=== PATIENT | male | born 1965 | race Caucasian/White ===

== ENCOUNTER 2017-03-13 14:30 | Emergency (ER) | payer OTHER ==
--- NOTE | 2017-03-13 14:43 | ED ---
General Adult HPI - General Chief complaint: Extremity Injury, Lower Stated complaint: Foot Pain Time Seen by Provider: 03/13/17 14:36 Source: patient, RN notes reviewed Mode of arrival: ambulatory Limitations: no limitations - History of Present Illness Initial comments: patient is a 31-year-old male who presents emergency room today with chief complaint of pain to the left foot. He does admit that he broke his foot was 6 years old. He states he's had a bump over the first metatarsal midshaft. He states that he worsens shoes for a few days. Be too tight on his foot. He states that since that time of the last week she's been experiencing pain to the area. He states is worse with certain movements. Patient denies any other complaints or injuries. Patient denies any recent fever, chills, shortness of breath, chest pain, back pain, abdominal pain, nausea or vomiting, numbness or tingling, headaches or visual changes, or any other complaints. - Related Data Home Medications Medication Instructions Recorded Confirmed Hydrocodone/Acetaminophen [[place] 1 tab PO QID PRN 03/13/17 03/13/17 10-325] Previous Rx's Medication Instructions Recorded Ibuprofen [Motrin] 600 mg PO Q6HR PRN #30 day 03/13/17 Allergies Allergy/AdvReac Type Severity Reaction Status Date / Time No Known Allergies Allergy Verified 03/13/17 14:36 Review of Systems ROS Statement: Those systems with pertinent positive or pertinent negative responses have been documented in the HPI. ROS Other: All systems not noted in ROS Statement are negative. Past Medical History Past Medical History: Cancer, Osteoarthritis (OA) Additional Past Medical History / Comment(s): back pain, kidney stones, colon CA History of Any Multi-Drug Resistant Organisms: None Reported Past Surgical History: Bowel Resection Past Psychological History: No Psychological Hx Reported Smoking Status: Never smoker Past Alcohol Use History: None Reported Past Drug Use History: None Reported General Exam - General Exam Comments Initial Comments: General: The patient is awake and alert, in no distress, and does not appear acutely ill. Neck: The neck is supple, there is no tenderness or JVD. Cardiovascular: There is a regular rate and rhythm. No murmur, rub or gallop is appreciated. Respiratory: Lungs are clear to auscultation, respirations are non-labored, breath sounds are equal. No wheezes, stridor, rales, or rhonchi. Musculoskeletal: she does have area of redness midshaft of the first metatarsal. Locally tender in this area. Mild tenderness just distal to it. No other bony tenderness on exam. Sensations intact pulses equal bilaterally 2+ . Shows full range of motion. Strength is 5/5. Neurological: A&O x 3. CN II-XII intact, There are no obvious motor or sensory deficits. Coordination appears grossly intact. Speech is normal. Skin: Skin is warm and dry and no rashes or lesions are noted. Psychiatric: Normal mood and affect. Limitations: no limitations Course Vital Signs 03/13/17 14:31 Temperature 98.2 F Pulse Rate 70 Respiratory 18 Rate Blood Pressure 155/91 O2 Sat by Pulse 99 Oximetry Medical Decision Making - Medical Decision Making x-ray reviewed and shows no acute fracture dislocation. Results were discussed with the patient. Patient is advised to follow-up with orthopedics also cooker soda. Advised to continue ice elevate the affected area and using ice. Advised to use anti-inflammatories for pain. Advised return for any other concerns. Disposition Clinical Impression: Foot pain, left Disposition: HOME SELF-CARE Condition: Good Instructions: Swollen Joint (ED) Additional Instructions: Please use medication as discussed. Please follow-up with cooker soda/ orthopedic in the next 2-5 days of symptoms have not improved. Please return to emergency room if the symptoms increase or worsen or for any other concerns. Prescriptions: Ibuprofen [Motrin] 600 mg PO Q6HR PRN #30 day PRN Reason: Pain Referrals: None,Stated [REFERRING] - 1-2 days Jonh Pop MD [Medical Doctor] - 1-2 days Dino Ayers DPM [STAFF PHYSICIAN] - 1-2 days Time of Disposition: 15:32
--- NOTE | 2017-03-13 15:46 | XR ---
EXAMINATION TYPE: XR foot complete LT DATE OF EXAM: 03/13/2017 COMPARISON: NONE HISTORY: Pain injury lump on foot first and second metatarsal region TECHNIQUE: Three-view left foot FINDINGS: No acute fractures are evident. Joint spaces are preserved. Soft tissues are normal. IMPRESSION: 1. Normal three-view left foot
[2017-03-13 16:42] VITALS: BP 155/91; PULSE 70; RESP 18; TEMP 98.2
== END 2017-03-13 15:47 | disposition home or self-care (01) ==
LOC: EC 14:30
DX: M79.672 Pain in left foot (principal); Z85.038 Personal history of other malignant neoplasm of large intestine
CPT/HCPCS: 99283

== ENCOUNTER → 2020-06-09 | Outpatient (CLI) | payer OTHER | END | disposition home or self-care (01) | LOC: LABPAT 09:37 | PROVIDERS: ATTEND Surgery | DX: Z20.822 Contact with and (suspected) exposure to COVID-19 (principal) | CPT/HCPCS: U0003; C9803; U0005 ==

== ENCOUNTER 2020-06-16 06:42 | Day surgery (SDC) | payer OTHER ==
[2020-06-13 17:47] VITALS: BMI 36.0
[~2020-06-16 06:42] MED LIST: LACTATED RINGERS 1,000 ML IV SCH
[2020-06-16 07:23] VITALS: RESP 16; TEMP 97.4
[2020-06-16] MEDS ORDERED: PROPOFOL 10 MG/ML 20 ML VIAL IV ONE (07:56)
[2020-06-16] MEDS ORDERED: fentaNYL (PF) 50 MCG/ML 2 ML AMP ONE (07:56)
[2020-06-16] MEDS ORDERED: MIDAZOLAM 2 MG/2 ML VIAL ONE (07:56)
--- NOTE | 2020-06-16 08:14 | P.PCN ---
Date of Procedure: 06/16/20 Preoperative Diagnosis: History of colon cancer Screening for colon cancer Postoperative Diagnosis: History of colon cancer Patent anastomosis Screening for colon cancer Procedure(s) Performed: Colonoscopy Anesthesia: MAC Surgeon: Basilio Barnhart Pathology: none sent Condition: stable Disposition: same day Indications for Procedure: 55-year-old male with personal history of colon cancer and right hemicolectomy presents today for screening colonoscopy. He denies any recent blood in his stool. Denies any significant changes in bowel function. No additional complaints at this time. Risks, benefits and alternatives were provided to the patient. He did provide consent prior to attending the endoscopy suite. Operative Findings: Patent anastomosis No obvious polyps Description of Procedure: The patient was brought to the endoscopy suite and placed in left lateral decubitus position and adequate sedation was achieved using conscious sedation. A digital rectal exam was performed and internal hemorrhoids were palpated. An endoscope was then placed in the rectum and advanced to the anastomosis of the patient's previous right hemicolectomy. The prep was good. The colonoscope was then slowly withdrawn, examining for any mucosal abnormalities. The remaining transverse, descending and sigmoid colon were visualized adequately. The previous anastomosis was noted to be patent without any ulceration. There were no large neoplastic lesions noted throughout the colon. There were no polyps noted throughout the colon. There was no evidence of diverticulosis. Retroflexion was performed in the rectum and internal hemorrhoids were visible. Excess air was removed, the colonoscope was withdrawn and the procedure terminated. The patient was then transferred to the recovery unit in stable condition. Repeat colonoscopy should be performed in 3 years.
[2020-06-16 08:31] VITALS: BP 151/97; PULSE 76
== END 2020-06-16 09:03 | disposition home or self-care (01) ==
LOC: ORWHC2ENDO 06:42
PROVIDERS: ATTEND Surgery
DX: Z12.11 Encounter for screening for malignant neoplasm of colon (principal); K64.8 Other hemorrhoids; Z87.442 Personal history of urinary calculi; Z79.891 Long term (current) use of opiate analgesic; Z90.49 Acquired absence of other specified parts of digestive tract; Z85.038 Personal history of other malignant neoplasm of large intestine
CPT/HCPCS: J2250; J3010; J2704; G0105

== ENCOUNTER 2020-06-19 11:53 | Emergency (ER) | payer OTHER ==
[2020-06-19] MEDS ORDERED: KETOROLAC 15 MG/ML 1 ML VIAL IVP STA (12:41)
[2020-06-19] MEDS ORDERED: SODIUM CHLORIDE 0.9% 1,000 ML IV STA (12:41)
--- NOTE | 2020-06-19 12:50 | ED ---
General Adult HPI - General Chief complaint: Abdominal Pain Stated complaint: revisit kidney stone pain and male gu pain Time Seen by Provider: 06/19/20 12:32 Source: patient, RN notes reviewed Mode of arrival: ambulatory Limitations: no limitations - History of Present Illness Initial comments: 55-year-old white male patient, alert and oriented 4, presents to the emergency room with right flank and right testicle pain. Patient states he has a history of kidney stones and his urologist has told him that they're small and will pass on their own. Patient states the pain started in his right flank last week however yesterday the pain became worse and he took his last [place] from previous illness with no relief. Patient underwent colonoscopy on 06/16/2020 and was given a clean bill of health, no further evidence of Colon cancer. Patient did have a resection done in the past. Patient states also has kidney stones in the left which was diagnosed at [facility]. Patient was also told to follow-up with urology on [facility], does not remember the doctor's name. Patient denies fevers, nausea vomiting or diarrhea. Does admit to decreased oral intake since having to drink so much fluid for his colonoscopy, states doesn't want to drink any more water. Patient denies drinking or smoking on a daily basis. Does not take any other pain medications. -: week(s) (1) Location: right (flank) Radiation: other (right testicle) Severity scale (1-10): 10 Improves with: none Worsens with: none Associated Symptoms: denies other symptoms - Related Data Home Medications Medication Instructions Recorded Confirmed Hydrocodone/Acetaminophen [[place] 1 tab PO QID PRN 03/13/17 06/19/20 10-325] Allergies Allergy/AdvReac Type Severity Reaction Status Date / Time No Known Allergies Allergy Verified 06/19/20 14:11 Review of Systems ROS Statement: Those systems with pertinent positive or pertinent negative responses have been documented in the HPI. ROS Other: All systems not noted in ROS Statement are negative. Past Medical History Past Medical History: Cancer, Osteoarthritis (OA) Additional Past Medical History / Comment(s): back pain, kidney stones, colon CA History of Any Multi-Drug Resistant Organisms: None Reported Past Surgical History: Bowel Resection Past Psychological History: No Psychological Hx Reported Smoking Status: Never smoker Past Alcohol Use History: None Reported Past Drug Use History: None Reported General Exam Limitations: no limitations General appearance: alert, in no apparent distress Head exam: Present: atraumatic, normocephalic, normal inspection Eye exam: Present: normal appearance, PERRL, EOMI. Absent: scleral icterus, conjunctival injection, periorbital swelling ENT exam: Present: normal exam, mucous membranes moist Respiratory exam: Present: normal lung sounds bilaterally. Absent: respiratory distress, wheezes, rales, rhonchi, stridor Cardiovascular Exam: Present: regular rate, normal rhythm, normal heart sounds. Absent: systolic murmur, diastolic murmur, rubs, gallop, clicks GI/Abdominal exam: Present: soft (midline scar from colon surgery in past), n ormal bowel sounds. Absent: distended, tenderness, guarding, rebound, rigid Back exam: Present: normal inspection, full ROM. Absent: CVA tenderness (R), CVA tenderness (L) Neurological exam: Present: alert, oriented X3, CN II-XII intact Psychiatric exam: Present: normal affect, normal mood Skin exam: Present: warm, dry, intact, normal color. Absent: rash, diaphoretic Course Vital Signs 06/19/20 06/19/20 12:23 14:24 Temperature 98.0 F Pulse Rate 96 89 Respiratory 17 18 Rate Blood Pressure 150/121 150/84 O2 Sat by Pulse 97 97 Oximetry Medical Decision Making - Medical Decision Making Patient with a history of bilateral renal calculi, right with 3-4 symptoms to 9 mm, left renal calculus 5 mm follow-up for, chest x-ray was clear to auscultation, WBC count 15.5 urine shows WBCs of 6 with bacteria and trace leukocytes which was treated with Rocephin [address] shows mild hydro-UPJ on right with 9mm calculi. Patient has an appointment with his primary care doctor today virtually. Case discussed with Dr. Lowery, will send patient home to follow up with his primary care doctor and urology. - Lab Data Result diagrams: 06/19/20 12:51 06/19/20 12:51 Lab Results 06/19/20 06/19/20 06/19/20 Range/Units 12:51 12:51 13:36 WBC 15.5 H (3.8-10.6) k/uL RBC 5.27 (4.30-5.90) m/uL Hgb 16.9 (13.0-17.5) gm/dL Hct 47.3 (39.0-53.0) % MCV 89.8 (80.0-100.0) fL MCH 32.1 (25.0-35.0) pg MCHC 35.8 (31.0-37.0) g/dL RDW 12.1 (11.5-15.5) % Plt Count 351 (150-450) k/uL MPV 7.2 Neutrophils % 84 % Lymphocytes % 8 % Monocytes % 6 % Eosinophils % 2 % Basophils % 1 % Neutrophils # 13.0 H (1.3-7.7) k/uL Lymphocytes # 1.2 (1.0-4.8) k/uL Monocytes # 0.9 (0-1.0) k/uL Eosinophils # 0.2 (0-0.7) k/uL Basophils # 0.1 (0-0.2) k/uL Sodium 139 (137-145) mmol/L Potassium 4.0 (3.5-5.1) mmol/L Chloride 102 (98-107) mmol/L Carbon Dioxide 25 (22-30) mmol/L Anion Gap 12 mmol/L BUN 14 (9-20) mg/dL Creatinine 1.00 (0.66-1.25) mg/dL Est GFR (CKD-EPI)AfAm >90 (>60 ml/min/1.73 sqM) Est GFR (CKD-EPI)NonAf 83 (>60 ml/min/1.73 sqM) Glucose 154 H (74-99) mg/dL Calcium 9.6 (8.4-10.2) mg/dL Total Bilirubin 0.5 (0.2-1.3) mg/dL AST 41 (17-59) U/L ALT 28 (4-49) U/L Alkaline Phosphatase 71 (38-126) U/L Total Protein 8.1 (6.3-8.2) g/dL Albumin 4.6 (3.5-5.0) g/dL Amylase 73 (30-110) U/L Lipase 128 (23-300) U/L Urine Color Yellow Urine Appearance Clear (Clear) Urine pH 5.5 (5.0-8.0) Ur Specific [place] 1.014 (1.001-1.035) Urine Protein Trace H (Negative) Urine Glucose (UA) Negative (Negative) Urine Ketones Negative (Negative) Urine Blood Large H (Negative) Urine Nitrite Negative (Negative) Urine Bilirubin Negative (Negative) Urine Urobilinogen <2.0 (<2.0) mg/dL Ur Leukocyte Esterase Trace H (Negative) Urine RBC >182 H (0-5) /hpf Urine WBC 6 H (0-5) /hpf Ur Squamous Epith Cells <1 (0-4) /hpf Urine Bacteria Rare H (None) /hpf Urine Mucus Rare H (None) /hpf Disposition Clinical Impression: Kidney stones Disposition: HOME SELF-CARE Condition: Fair Instructions (If sedation given, give patient instructions): Kidney Stones (ED) Additional Instructions: Follow-up with the primary care doctor this week as scheduled, follow-up with her urologist within the next 7 days. Is patient prescribed a controlled substance at d/c from ED?: No Referrals: None,Stated [Primary Care Provider] - 1-2 days Oh Hung MD [STAFF PHYSICIAN] - 1-2 days Time of Disposition: 16:16
[2020-06-19 13:13] LABS: Basophils # (A) 0.1 k/uL (0-0.2); Basophils % (A) 1 %; Eosinophils # (A) 0.2 k/uL (0-0.7); Eosinophils % (A) 2 %; HCT 47.3 % (39.0-53.0); HGB 16.9 gm/dL (13.0-17.5); Lymphocytes # (A) 1.2 k/uL (1.0-4.8); Lymphocytes % (A) 8 %; MCH 32.1 pg (25.0-35.0); MCHC 35.8 g/dL (31.0-37.0); MCV 89.8 fL (80.0-100.0); Mean Platelet Volume 7.2; Monocytes # (A) 0.9 k/uL (0-1.0); Monocytes % (A) 6 %; Neutrophils % (A) 84 %; Platelet Count 351 k/uL (150-450); RBC 5.27 m/uL (4.30-5.90); RDW 12.1 % (11.5-15.5); WBC 15.5 k/uL (3.8-10.6)
[2020-06-19 13:37] LABS: ALT 28 U/L (4-49); AST 41 U/L (17-59); African American GFR (CKD) >90 (>60 ml/min/1.73 sqM); Albumin 4.6 g/dL (3.5-5.0); Alkaline Phosphatase 71 U/L (38-126); Amylase 73 U/L (30-110); Anion Gap 12 mmol/L; Blood Urea Nitrogen 14 mg/dL (9-20); Calcium 9.6 mg/dL (8.4-10.2); Carbon Dioxide 25 mmol/L (22-30); Chloride 102 mmol/L (98-107); Glucose 154 mg/dL (74-99); Lipase 128 U/L (23-300); Non-African American GFR(CKD) 83 (>60 ml/min/1.73 sqM); Sodium 139 mmol/L (137-145); Total Bilirubin 0.5 mg/dL (0.2-1.3); Total Protein 8.1 g/dL (6.3-8.2)
--- NOTE | 2020-06-19 13:44 | XR ---
EXAMINATION TYPE: XR KUB DATE OF EXAM: 06/19/2020 1:32 PM CLINICAL HISTORY: Right flank pain. TECHNIQUE: Two Upright KUB images of the abdomen are obtained. COMPARISON: None. FINDINGS: Exam suboptimal secondary to patient's large body habitus and overlying fecal debris. Air-f luid level seen in nondistended stomach. Some paucity of small bowel gas. Gas and fecal material seen in nondistended colon. There are probable 3-4 right-sided renal calculi with small faint round densi ties projecting up to 9 mm in size. Probable 5 mm elongated medial lower pole left renal calculus. Ryann ng bases are clear. No free air. Rbsb-ov-ddkhbbve axial joint space loss in both hips left greater th an right. IMPRESSION: As above. Suboptimal study. Probable bilateral nephrolithiasis.
[2020-06-19 13:55] LABS: Appearance,Urine Clear (Clear); Bacteria,Urine Rare /hpf; Bilirubin,Urine Negative (Negative); Blood,Urine Large (Negative); Color,Urine Yellow; Glucose,Urine (UA) Negative (Negative); Ketones,Urine Negative (Negative); Leukocyte Esterase,Urine Trace (Negative); Mucus,Urine Rare /hpf; Nitrite,Urine Negative (Negative); PH, Urine 5.5 (5.0-8.0); Protein,Urine Trace (Negative); RBC,Urine >182 /hpf (0-5); Specific Gravity,Urine 1.014 (1.001-1.035); Squamous Epithelial Cell,Urine <1 /hpf (0-4); Urobilinogen,Urine <2.0 mg/dL (<2.0); WBC,Urine 6 /hpf (0-5)
[2020-06-19] MEDS ORDERED: MORPHINE SULFATE 4 MG/ML SYRINGE IVP STA (14:13)
[2020-06-19] MEDS ORDERED: SODIUM CHLORIDE 0.9% 1,000 ML IV SCH (14:15)
[2020-06-19 14:25] VITALS: RESP 18
--- NOTE | 2020-06-19 15:33 | CT ---
EXAMINATION TYPE: CT abdomen pelvis wo con DATE OF EXAM: 06/19/2020 COMPARISON: HISTORY: right flank pain CT DLP: 1164 mGycm Automated exposure control for dose reduction was used. TECHNIQUE: Helical acquisition of images was performed from the lung bases through the pelvis. FINDINGS: LUNG BASES: No significant abnormality is appreciated. LIVER/GB: Liver low in attenuation. Measures 22 cm correlate for hepatomegaly with hepatic steatosis. No gallstones. PANCREAS: No significant abnormality is seen. SPLEEN: No significant abnormality is seen. ADRENALS: No significant abnormality is seen. KIDNEYS: Bilateral perinephric edema. Mild right hydronephrosis secondary to right UPJ calcification measuring 9 mm. Additional 3 mm lower pole right renal calculus. Left kidney demonstrates approximately 7sub 5mm mm calcifications with no hydronephrosis. There is a exophytic subcentimeter the lesion extending off the left kidney which does not meet the criteria of a simple cyst but is too small to characterize. Follow-up ultrasound recommended. ADENOPATHY: None visualized. OSSEOUS STRUCTURES: Hypertrophic and degenerative changes of the spine. BOWEL: Bowel gas pattern nonspecific and suggestion of previous bowel surgery. No evidence of obstru ction. OTHER: Small fat-containing periumbilical hernia. No free fluid or free air. Prostate calcifications noted. Small fat-containing inguinal hernias noted. IMPRESSION: 1. Mild right hydronephrosis secondary to right UPJ 9 mm calculus. 2. Bilateral additional nephrolithiasis. 3. Correlate for hepatic steatosis #4 anterior abdominal wall periumbilical hernia containing bowel b ut no evidence of obstruction.
[2020-06-19 17:00] VITALS: BP 170/98; PULSE 77; TEMP 98.1
== END 2020-06-19 17:02 | disposition home or self-care (01) ==
LOC: EC 11:53
DX: N13.2 Hydronephrosis with renal and ureteral calculous obstruction (principal); Z85.038 Personal history of other malignant neoplasm of large intestine
CPT/HCPCS: 36415; 80053; 82150; 83690; 85025; 81001; 87086; 74018; 74176; 99284; 96374; 96375 ×2; 96361 ×3; J2270; J0696; J1885

== ENCOUNTER 2020-07-22 08:38 | Emergency (ER) | payer OTHER ==
[2020-07-22 08:42] VITALS: BP 157/95; PULSE 87; RESP 20; TEMP 97.7
--- NOTE | 2020-07-22 09:13 | XR ---
EXAMINATION TYPE: XR knee complete RT DATE OF EXAM: 07/22/2020 COMPARISON: NONE HISTORY: Pain TECHNIQUE: Three views are submitted. FINDINGS: Mild narrowing of the medial compartment of the knee joint. Sclerotic change involving the diaphysis of the femur. Compatible intraosseous lesion. Second smaller sclerotic density seen in the distal asp ect of the diaphysis. Osseous structures are intact. No acute fracture seen. IMPRESSION: 1. Mild arthropathy. 2. Intraosseous lesion involving the distal femur could be on the basis of healed fibroxanthoma, bone island or chondroid lesion. Recommend follow-up bone scan..
--- NOTE | 2020-07-22 09:14 | ED ---
General Adult HPI - General Chief complaint: Extremity Problem,Nontraumatic Stated complaint: rash, knee pain Time Seen by Provider: 07/22/20 08:43 Source: patient, RN notes reviewed Mode of arrival: ambulatory Limitations: no limitations - History of Present Illness Initial comments: 55-year-old male with a past medical history of colon cancer, kidney stones presents to the emergency room for a chief complaint of right knee pain. Patient states 6 months ago he was walking and accidentally hit a piece of steel with his right knee. He states that her since that time it hurts. States that when he kneels on his hands and knees as when he notices it the most. Patient denies the steel making any break in the skin. Patient denies any worsening pa in recently. Patient states he also has a rash of the groin. States this has been here for "quite a while" however he is unable to say how long exactly. He reports his doctor started him on a nystatin powder which he has been trying for 5 days.Patient has no other complaints at this time including shortness of breath, chest pain, abdominal pain, nausea or vomiting, headache, or visual changes. - Related Data Home Medications Medication Instructions Recorded Confirmed RX: Hydrocodone/Acetaminophen 1 tab PO QID PRN 03/13/17 06/19/20 [[place] 10-325] Allergies Allergy/AdvReac Type Severity Reaction Status Date / Time No Known Allergies Allergy Verified 07/22/20 08:42 Review of Systems ROS Statement: Those systems with pertinent positive or pertinent negative responses have been documented in the HPI. ROS Other: All systems not noted in ROS Statement are negative. Past Medical History Past Medical History: Cancer, Osteoarthritis (OA) Additional Past Medical History / Comment(s): back pain, kidney stones, colon CA History of Any Multi-Drug Resistant Organisms: None Reported Past Surgical History: Bowel Resection Past Psychological History: No Psychological Hx Reported Smoking Status: Never smoker Past Alcohol Use History: None Reported Past Drug Use History: None Reported General Exam Limitations: no limitations General appearance: alert, in no apparent distress Head exam: Present: atraumatic, normocephalic, normal inspection Eye exam: Present: normal appearance, PERRL, EOMI. Absent: scleral icterus, c onjunctival injection, periorbital swelling ENT exam: Present: normal exam, mucous membranes moist Neck exam: Present: normal inspection, full ROM. Absent: tenderness, meningismus, lymphadenopathy Respiratory exam: Present: normal lung sounds bilaterally. Absent: respiratory distress, wheezes, rales, rhonchi, stridor Cardiovascular Exam: Present: regular rate, normal rhythm, normal heart sounds. Absent: systolic murmur, diastolic murmur, rubs, gallop, clicks Extremities exam: Present: normal inspection, full ROM (Full range of motion of the right knee), normal capillary refill (Capillary refill less than 2 seconds, dp pulse 2+ right lower extremity), other (sensation intact RLE). Absent: tenderness (no knee tenderness), pedal edema, joint swelling (no edema R knee), calf tenderness Course Vital Signs 07/22/20 08:40 Temperature 97.7 F Pulse Rate 87 Respiratory 20 Rate Blood Pressure 157/95 O2 Sat by Pulse 98 Oximetry Medical Decision Making - Medical Decision Making X-ray of the right knee was obtained which did show an intraosseous lesion involving the distal femur, recommend follow-up bone scan. Patient was informed of this, will follow up with primary care. Patient does have a plaque-like rash noted on the intertriginous region. He is already on nystatin powder for this. Recommend he follow up with dermatology. He will return here for any worsening symptoms. Disposition Clinical Impression: Knee pain, right, Bone lesion, Rash Disposition: HOME SELF-CARE Condition: Good Instructions (If sedation given, give patient instructions): Knee Pain (ED) Additional Instructions: Take Motrin and tylenol for pain. Follow-up with primary care. Follow up with dermatology for rash. Return to the emergency room for any worsening symptoms. Is patient prescribed a controlled substance at d/c from ED?: No Referrals: Fili Barroso MD [Primary Care Provider] - 1-2 days Barb Fields MD [STAFF PHYSICIAN] - 1-2 days Time of Disposition: 09:40
== END 2020-07-22 09:45 | disposition home or self-care (01) ==
LOC: EC 08:38
DX: M89.9 Disorder of bone, unspecified (principal); M25.561 Pain in right knee; R21 Rash and other nonspecific skin eruption; M19.90 Unspecified osteoarthritis, unspecified site; Z85.038 Personal history of other malignant neoplasm of large intestine; Z87.442 Personal history of urinary calculi
CPT/HCPCS: 99283

== ENCOUNTER → 2020-11-27 | Outpatient (CLI) | payer OTHER ==
[2020-11-27 20:31] LABS: Basophils # (A) 0.13 X 10*3/uL (0.00-0.10); Basophils % (A) 1.5 %; Eosinophils # (A) 0.08 X 10*3/uL (0.04-0.35); Eosinophils % (A) 0.9 %; HCT 48.3 % (39.6-50.0); HGB 16.1 g/dL (13.0-17.0); Lymphocytes % (A) 21.3 %; MCH 30.9 pg (27.0-32.0); MCHC 33.3 g/dL (32.0-37.0); MCV 92.7 fL (80.0-97.0); Mean Platelet Volume 10.2 fL (9.5-12.2); Monocytes # (A) 0.52 X 10*3/uL (0.20-1.00); Monocytes % (A) 5.8 %; Neutrophils % (A) 69.4 %; Platelet Count 406 X 10*3/uL (140-440); RBC 5.21 X 10*6/uL (4.40-5.60); WBC 8.93 X 10*3/uL (4.50-10.00)
[2020-11-27 20:40] LABS: ALT 22 U/L (10-49); AST 24 U/L (14-35)
== END | disposition home or self-care (01) ==
LOC: LABWHC1 12:53
PROVIDERS: ATTEND Physician Assistant Medical
DX: A63.0 Anogenital (venereal) warts (principal); B35.6 Tinea cruris
CPT/HCPCS: 36415; 84450; 84460; 85025

== ENCOUNTER → 2021-01-09 | Outpatient (CLI) | payer OTHER ==
--- NOTE | 2021-01-09 15:48 | CT ---
EXAMINATION TYPE: CT urogram wo/w con DATE OF EXAM: 01/09/2021 COMPARISON: CT abdomen and pelvis June 19, 2020 HISTORY: Gross hematuria. CT DLP: 4069 mGycm, Automated Exposure Control for Dose Reduction was Utilized. CONTRAST: CT scan of the abdomen and pelvis is performed without oral and without and with IV Contrast, patient injected with 100 mL of Isovue M300. Urogram protocol with 3-D reconstructed images created on an in dependent Workstation and reviewed. FINDINGS: There is artifact noted making evaluation slightly suboptimal KUB: Noncontrast images approximately 3 lower pole right renal calculi including 16 mm elongated calc ulus lower pole right kidney calyx coronal image 60 extending towards the pelvis. There are approxima tely 3 scattered left renal calculi up to 6 mm on current study. Postcontrast images show satisfactor y left-sided cortical medullary uptake and excretion without hydronephrosis seen. There is absent or delayed excretion on the right there is moderate right-sided hydronephrosis due to obstructing 5 mm c alculus at UVJ axial image 135. Visualized portion of left ureter is unremarkable. Urinary bladder ap pears within normal limits. LUNG BASES: No significant abnormality is appreciated. LIVER/GB: No significant abnormality is appreciated. PANCREAS: No significant abnormality is seen. SPLEEN: No significant abnormality is seen. ADRENALS: No significant abnormality is seen. BOWEL: Surgical sutures from partial proximal colectomy redemonstrated. PROSTATE/SEMINAL VESICLES: No gross abnormality seen. LYMPH NODES: No greater than 1cm abdominal or pelvic lymph nodes are appreciated. OSSEOUS STRUCTURES: Ezst-oa-jvludshs multilevel spurring and disc space narrowing. OTHER: No significant additional abnormality is seen. IMPRESSION: Moderate right-sided hydronephrosis with at least delayed excretion secondary to obstruct ing 5 mm calculus at UVJ on current study. Bilateral nephrolithiasis redemonstrated with new larger c alculi in the right kidney seen from prior study in June.
== END | disposition home or self-care (01) ==
LOC: RADCTMAIN 14:01
PROVIDERS: ATTEND Urology
DX: N13.2 Hydronephrosis with renal and ureteral calculous obstruction (principal)
CPT/HCPCS: 82565; 84520; 74178; 36415; 74400; Q9967

== ENCOUNTER → 2021-01-18 | Outpatient (CLI) | payer OTHER ==
[2021-01-18 13:33] LABS: Basophils # (A) 0.1 k/uL (0-0.2); Basophils % (A) 1 %; Eosinophils # (A) 0.1 k/uL (0-0.7); Eosinophils % (A) 1 %; HCT 44.6 % (39.0-53.0); Lymphocytes # (A) 1.9 k/uL (1.0-4.8); Lymphocytes % (A) 22 %; MCH 31.9 pg (25.0-35.0); MCHC 33.6 g/dL (31.0-37.0); MCV 94.9 fL (80.0-100.0); Mean Platelet Volume 7.3; Monocytes # (A) 0.7 k/uL (0-1.0); Monocytes % (A) 8 %; Neutrophils # (A) 5.9 k/uL (1.3-7.7); Neutrophils % (A) 67 %; Platelet Count 497 k/uL (150-450); WBC 8.8 k/uL (3.8-10.6)
[2021-01-18 13:51] LABS: African American GFR (CKD) >90 (>60 ml/min/1.73 sqM); Anion Gap 9 mmol/L; Blood Urea Nitrogen 13 mg/dL (9-20); Calcium 9.8 mg/dL (8.4-10.2); Carbon Dioxide 30 mmol/L (22-30); Chloride 101 mmol/L (98-107); Glucose 130 mg/dL (74-99); Non-African American GFR(CKD) >90 (>60 ml/min/1.73 sqM); Sodium 140 mmol/L (137-145)
[2021-01-18 13:55] LABS: Appearance,Urine Clear (Clear); Bilirubin,Urine Negative (Negative); Blood,Urine Moderate (Negative); Color,Urine Yellow; Glucose,Urine (UA) Negative (Negative); Ketones,Urine Negative (Negative); Leukocyte Esterase,Urine Small (Negative); Mucus,Urine Occasional /hpf; Nitrite,Urine Negative (Negative); Protein,Urine Trace (Negative); RBC,Urine 46 /hpf (0-5); Specific Gravity,Urine 1.023 (1.001-1.035); Urobilinogen,Urine <2.0 mg/dL (<2.0); WBC,Urine 12 /hpf (0-5)
== END | disposition home or self-care (01) ==
LOC: LABPAT 12:18
PROVIDERS: ATTEND Urology
DX: Z01.812 Encounter for preprocedural laboratory examination (principal); N20.0 Calculus of kidney; R31.29 Other microscopic hematuria
CPT/HCPCS: 80048; 81001; 85025; 87086

== ENCOUNTER 2021-01-25 09:31 | Day surgery (SDC) | payer OTHER ==
[2021-01-23 14:46] VITALS: BMI 36.0
[~2021-01-25 09:31] MED LIST changes: +DEXAMETHASONE SOD PHOSPHATE 4 MG/ML 1 ML VIAL IV ONE; +HYDROmorphone 0.5 MG/0.5 ML SYRINGE IVP PRN; +LIDOCAINE 1% (10MG/ML) FOR IV START INTRADERMA PRN; +ONDANSETRON 4 MG/2 ML VIAL IVP ONE
--- NOTE | 2021-01-25 09:51 | XR ---
EXAMINATION TYPE: XR KUB DATE OF EXAM: 01/25/2021 COMPARISON: 06/19/2020 HISTORY: Renal calculi TECHNIQUE: One view abdominal series FINDINGS: The osseous structures are intact. The bowel gas pattern is nonspecific. Hypertrophic and degenerati ve change of the spine. Right kidney: There is a 2.1 cm right midpole renal calculus. Bowel content obscures remaining portio n appears to be at least one additional 6 mm adjacent calcification. Left kidney: there appear to be multiple less than 5 mm renal calculi estimated total of 3. IMPRESSION: 1. Nonspecific abdomen. 2. Bilateral phthisis prior exam.
--- NOTE | 2021-01-25 12:15 | P.HPIHPCON ---
History of Present Illness H&P Date: 01/25/21 Chief Complaint: bilateral kidney stones this is a 55-year-old male with history of 6 mm right-sided distal stone, and a 1.5 cm right-sided midpole stone, multiple nonobstructive left renal stone. He is symptomatically from his right-sided stones. I discussed with him the option of ureteroscopy with holmium laser. Discussed with him the risk of surgery which includes but not limited to bleeding, infection, injury to the ureter. Discussed with him we'll attempt to address his left-sided renal stone given his intermittent pain on the left side also. He understood all the risk and agreed to proceed with bilateral ureteroscopy, with holmium laser lithotripsy, stone b asketing and stent insertion Consent for Procedure: I have explained the operation/procedure to the patient, including the risks, benefits, side effects, alternative therapies (including not receiving the proposed treatment or service), the likelihood of the patient achieving his/her goals, and potential recuperation problems for the procedure/sedation/analgesia, as well as any blood products, if indicated. I also explained to the patient the risks, benefits and side effects of the alternatives, as well as the risks related to not receiving the proposed procedure, care, treatment, or services. Past Medical History Past Medical History: Cancer, Osteoarthritis (OA) Additional Past Medical History / Comment(s): Chronic back pain, hx of and current kidney stones, hx colon cancer 5 yrs ago. History of Any Multi-Drug Resistant Organisms: None Reported Past Surgical History: Bowel Resection Additional Past Surgical History / Comment(s): Bone scan. Past Anesthesia/Blood Transfusion Reactions: No Reported Reaction Past Psychological History: No Psychological Hx Reported Smoking Status: Never smoker Past Alcohol Use History: None Reported Past Drug Use History: None Reported - Past Family History Mother Family Medical History: No Reported History Medications and Allergies Home Medications Medication Instructions Recorded Confirmed Type Hydrocodone/Acetaminophen [[place] 1 tab PO QID PRN 03/13/17 01/25/21 History 10-325] Allergies Allergy/AdvReac Type Severity Reaction Status Date / Time No Known Allergies Allergy Verified 01/25/21 10:28 Surgical - Exam Vital Signs Temp Pulse Resp BP Pulse Ox 98.3 F 90 18 173/104 99 01/25/21 10:18 01/25/21 10:18 01/25/21 10:18 01/25/21 10:18 01/25/21 10:18 - General no distress, moderate pain - Eyes PERRL, normal ocular movement - ENT normal nares, normal mucosa - Respiratory normal expansion, normal respiratory effort - Abdomen Abdomen: soft, non tender Assessment and Plan Assessment: bilateral kidney stones -OR for bilateral ureteroscopy, with holmium laser lithotripsy, stone basketing and stent insertion
[2021-01-25] MEDS ORDERED: SUCCINYLCHOLINE CHLORIDE VIAL 200 MG/10 ML VIAL IV ONE (12:55)
[2021-01-25] MEDS ORDERED: NEOSTIGMINE 1 MG/ML 10 ML VIAL ONE (12:55)
[2021-01-25] MEDS ORDERED: ROCURONIUM 10 MG/ML (5 ML VIAL) IV ONE (12:55)
[2021-01-25] MEDS ORDERED: GLYCOPYRROLATE 0.2 MG/ML 2 ML VIAL ONE (12:55)
[2021-01-25] MEDS ORDERED: MIDAZOLAM 2 MG/2 ML VIAL ONE (12:55)
[2021-01-25] MEDS ORDERED: fentaNYL (PF) 50 MCG/ML 2 ML AMP ONE (12:55)
[2021-01-25] MEDS ORDERED: PROPOFOL 10 MG/ML 20 ML VIAL IV ONE (12:55)
[2021-01-25] MEDS ORDERED: LIDOCAINE 1% INJ 10MG/ML (20 ML MDV) ONE (12:55)
[2021-01-25] MEDS ORDERED: HYDROmorphone (PF) 1 MG/ML ONE (12:55)
[2021-01-25] MEDS ORDERED: LACTATED RINGERS 1,000 ML IV ONE (14:20)
--- NOTE | 2021-01-25 14:57 | FL ---
EXAMINATION TYPE: FL urography retrograde DATE OF EXAM: 01/25/2021 COMPARISON: NONE HISTORY: Fluoroscopy time. Fluoroscopy was provided to the referring clinician.
[2021-01-25 15:12] VITALS: TEMP 97.2
--- NOTE | 2021-01-25 15:14 | P.OP ---
Date of Procedure: 01/25/21 Preoperative Diagnosis: right ureteral stone, bilateral renal stone Postoperative Diagnosis: same Procedure(s) Performed: Cystoscopy, bilateral ureteroscopy, holmium laser lithotripsy, stone basketing and stent insertion Implants: 6-Malaysian by 26 cm stent bilaterally left on a string Anesthesia: MARY CARMEN Surgeon: Oh Hung Estimated Blood Loss (ml): 5 Pathology: other (bilateral renal stone) Condition: stable Disposition: PACU Indications for Procedure: this is a 55-year-old male with history of 6 mm right-sided distal stone, and a 1.5 cm right-sided midpole stone, multiple nonobstructive left renal stone. He is symptomatically from his right-sided stones. I discussed with him the option of ureteroscopy with holmium laser. Discussed with him the risk of surgery which includes but not limited to bleeding, infection, injury to the ureter. Discussed with him we'll attempt to address his left-sided renal stone given his intermittent pain on the left side also. He understood all the risk and agreed to proceed with bilateral ureteroscopy, with holmium laser lithotripsy, stone basketing and stent insertion Operative Findings: Bilateral renal stones Description of Procedure: Patient was brought to the operating room, general anesthesia was induced. He was prepped and draped in sterile fashion and placed in a dorsal lithotomy position. Cystoscopy fitted with a 21-Malaysian sheath was inserted per urethra, cystoscopy was performed which showed no abnormality within the bladder. Of note patient had an obstructive prostate, with the large median lobe. Attention was then carried to the right ureteral orifice which was intubated with a sensor wire. Next the cystoscope was withdrawn and a semirigid ureteroscope was advanced up the right ureteral orifice, the scope was advanced all the way to the proximal ureter which showed no stones along the course of the ureter, pullback ureteroscopy was performed which showed no injury to the ureter or any ureteral stone, of note there was edema at the distal ureter, but no stone was visualized. At this time the ureteroscope was withdrawn and under fluoroscopy a 1113 Malaysian access sheath was passed into the proximal ureter. Next the flexible ureteroscope was inserted through the access sheath, renoscopy was performed which showed a large stone within the lower pole. Using the holmium laser the stone was dusted into small fragments, sizable fragments were removed using the stone basket and sent for analysis. Repeat renoscopy showed no injury to the kidney or any sizable fragments. Of note there was significant amount of dust which slightly limited visualization. Pullback ureteroscopy was performed which showed no evidence of any injury to the ureter or any ureteral fragments. As the ureteroscope was withdrawn a sensor wire was advanced through. Next the cystoscope was reinserted and the left ureteral orifice was intubated with a sensor wire. Next under fluoroscopy 1113 Malaysian access sheath was passed into the proximal ureter. Flexible ureteroscope was inserted through the access sheath, renoscopy was performed which showed multiple stones throughout the left kidney. The stones were fragmented using the holmium laser. Sizable fragments were removed using the stone basket. Repeat renoscopy showed no sizable fragments within the kidney or injury to the kidney. Pullback ureteroscopy was performed which showed no evidence of ureteral injury or any ureteral fragments. As the ureteroscope was withdrawn a sensor wire was advanced through. Next a ureteral stent was passed over the wire on the right side. The proximal curl was visualized on fluoroscopy and the distal curl was visualized using the cystoscope. The stent was passed up past on the left side, the proximal curl was visualized on fluoroscopy and distal curl was visualized using cystoscope. Both stents were left on a string and taped to the patient penis. Patient tolerated the procedure well was taken to recovery in stable condition
[2021-01-25 16:37] VITALS: RESP 20
[2021-01-25] MEDS ORDERED: HYDROcodone/APAP 10-325MG 1 EACH TAB ONE (16:55)
[2021-01-25] MEDS ORDERED: HYDROcodone/APAP 10-325MG 1 EACH TAB PO ONE (16:58)
[2021-01-25 17:27] VITALS: BP 165/74; PULSE 85
== END 2021-01-25 17:55 | disposition home or self-care (01) ==
LOC: OR 09:31
PROVIDERS: ATTEND Urology
DX: N20.2 Calculus of kidney with calculus of ureter (principal); M19.90 Unspecified osteoarthritis, unspecified site; Z85.038 Personal history of other malignant neoplasm of large intestine; G89.29 Other chronic pain; M54.9 Dorsalgia, unspecified
CPT/HCPCS: 82365; 74420; 74018; 52356; C1769; J2250; J0330; J1100; J2710; J0690; J2405; J2001; J3010; J1170; J2704

== ENCOUNTER → 2021-03-01 | Outpatient (CLI) | payer OTHER ==
--- NOTE | 2021-03-01 19:15 | US ---
EXAMINATION TYPE: US kidneys/renal and bladder DATE OF EXAM: 03/01/2021 COMPARISON: NONE CLINICAL HISTORY: 55-year-old male N20.0 CALCULUS OF KIDNEYS. Hx of kidney stones, lithotripsy 2 week s ago TECHNIQUE: Multiple sonographic images of the kidneys and bladder are obtained. FINDINGS: EXAM MEASUREMENTS: Right Kidney: 13.4 x 5.8 x 5.5 cm Left Kidney: 13.7 x 6.4 x 5.0 cm Right Kidney: 8mm echogenic focus at the lower pole. No hydronephrosis. Left Kidney: 5 mm echogenic focus at the lower pole. No hydronephrosis. Bladder: Partial distention of the bladder limits its evaluation. Bilateral Jets seen: no IMPRESSION: 1. No hydronephrosis. 2. A nonobstructive renal calculus on either side measuring up to 8 mm.
== END | disposition home or self-care (01) ==
LOC: RADUSWWP 15:30
PROVIDERS: ATTEND Urology
DX: N20.0 Calculus of kidney (principal)
CPT/HCPCS: 76770

== ENCOUNTER 2021-09-25 13:41 | Emergency (ER) | payer OTHER ==
[2021-09-25 13:45] VITALS: PULSE 85; RESP 18; TEMP 98.3
[2021-09-25 13:59] VITALS: BP 160/98
--- NOTE | 2021-09-25 14:21 | ED ---
Extremity Problem HPI - General Chief complaint: Extremity Problem,Nontraumatic Stated complaint: lt knee pain Time Seen by Provider: 09/25/21 13:45 Source: patient, RN notes reviewed Mode of arrival: ambulatory Limitations: no limitations - History of Present Illness Initial comments: This a 56-year-old male presents emergency Department chief complaint left knee pain. Patient states that cerebellar multiple over a week ago. Patient states that he was getting out of his truckhe started to have left knee soreness He states he never fell onto his knee. Patient states that he just has pain in the medial aspect. Denies any clicking popping or any giving out sensation. Patient denies any redness, fever or chills or any paresthesias - Related Data Home Medications Medication Instructions Recorded Confirmed Hydrocodone/Acetaminophen [[place] 1 tab PO QID PRN 03/13/17 01/25/21 10-325] Previous Rx's Medication Instructions Recorded Cephalexin [Keflex] 500 mg PO Q8HR #15 cap 01/25/21 Ketorolac [Toradol] 10 mg PO Q6HR PRN #15 tab 01/25/21 Ibuprofen [Motrin] 600 mg PO Q8HR PRN #20 tab 09/25/21 Allergies Allergy/AdvReac Type Severity Reaction Status Date / Time No Known Allergies Allergy Verified 09/25/21 13:42 Review of Systems ROS Statement: Those systems with pertinent positive or pertinent negative responses have been documented in the HPI. ROS Other: All systems not noted in ROS Statement are negative. Past Medical History Past Medical History: Cancer, Osteoarthritis (OA) Additional Past Medical History / Comment(s): back pain, kidney stones, colon CA History of Any Multi-Drug Resistant Organisms: None Reported Past Surgical History: Bowel Resection Past Psychological History: No Psychological Hx Reported Smoking Status: Never smoker Past Alcohol Use History: None Reported Past Drug Use History: None Reported General Exam Limitations: no limitations General appearance: alert, in no apparent distress Head exam: Present: atraumatic, normocephalic, normal inspection Respiratory exam: Present: normal lung sounds bilaterally. Absent: respiratory distress, wheezes, rales, rhonchi, stridor Cardiovascular Exam: Present: regular rate, normal rhythm, normal heart sounds. Absent: systolic murmur, diastolic murmur, rubs, gallop, clicks Extremities exam: Present: other (Left knee there is mild medial joint tenderness, there is no erythema or increased warmth patient has no pain with range of motion neurovascular intact no Tenderness) Course Vital Signs 09/25/21 09/25/21 13:42 13:59 Temperature 98.3 F Pulse Rate 85 Respiratory 18 Rate Blood Pressure 171/111 160/98 O2 Sat by Pulse 98 98 Oximetry Medical Decision Making - Medical Decision Making 56-year-old male presented for left knee pain. Patient symptoms more consistent with a meniscus injury. Patient pain with weightbearing, medial aspect. Patient is no laxity patient will follow-up with orthopedics. Return parameters discussed. Disposition Clinical Impression: Left knee pain Disposition: HOME SELF-CARE Condition: Stable Instructions (If sedation given, give patient instructions): Knee Pain (ED) Additional Instructions: Please return to the Emergency Department if symptoms worsen or any other concerns. Prescriptions: Ibuprofen [Motrin] 600 mg PO Q8HR PRN #20 tab PRN Reason: Pain Is patient prescribed a controlled substance at d/c from ED?: No Referrals: Fili Barroso MD [Primary Care Provider] - 1-2 days Jesús Badillo DO [Doctor of Osteopathic Medicine] - 1-2 days Time of Disposition: 15:22
--- NOTE | 2021-09-25 15:07 | XR ---
Left knee HISTORY: Pain 3 views left knee Bone mineralization, joint spaces and alignment are maintained is no fracture or dislocation. IMPRESSION: Normal left knee
[2021-09-25] MEDS ORDERED: ACET/COD 300 MG/30 MG STARTER PACK 6 TAB BTL PO STA (15:22)
== END 2021-09-25 15:37 | disposition home or self-care (01) ==
LOC: EC 13:41
DX: M25.562 Pain in left knee (principal)
CPT/HCPCS: 99283

== ENCOUNTER → 2021-12-31 | Outpatient (CLI) | payer OTHER ==
[2021-12-31 15:00] LABS: Basophils # (A) 0.14 X 10*3/uL (0.00-0.10); Basophils % (A) 1.2 %; Eosinophils # (A) 0.23 X 10*3/uL (0.04-0.35); Eosinophils % (A) 1.9 %; HCT 45.1 % (39.6-50.0); HGB 15.1 g/dL (13.0-17.0); Immature Grans, Automated 1.4 %; Lymphocytes # (A) 2.38 X 10*3/uL (0.90-5.00); Lymphocytes % (A) 19.7 %; MCH 31.1 pg (27.0-32.0); MCHC 33.5 g/dL (32.0-37.0); Mean Platelet Volume 9.7 fL (9.5-12.2); Monocytes # (A) 0.98 X 10*3/uL (0.20-1.00); Monocytes % (A) 8.1 %; NRBC Per 100 WBC 0 /100 WBCS (0.0-0.0); Neutrophils # (A) 8.21 X 10*3/uL (1.80-7.70); Neutrophils % (A) 67.7 %; Platelet Count 514 X 10*3/uL (140-440); RBC 4.85 X 10*6/uL (4.40-5.60); RDW 12.2 % (11.5-14.5); WBC 12.11 X 10*3/uL (4.50-10.00)
[2021-12-31 15:15] LABS: African American GFR (CKD) 95.7 (60.0-200.0); Anion Gap 14.3 mmol/L (10.00-18.00); BUN/Creat Ratio 16.9 Ratio (12.00-20.00); Blood Urea Nitrogen 16.9 mg/dL (9.0-27.0); Carbon Dioxide 25.7 mmol/L (20.0-27.5); Non-African American GFR(CKD) 82.6 (60.0-200.0); Potassium 4.1 mmol/L (3.5-5.5)
[2021-12-31 16:44] LABS: Appearance,Urine Turbid (Clear); Bacteria,Urine 3+ /HPF (None Seen); Bilirubin,Urine Negative (Negative); Blood,Urine Large (Negative); Color,Urine Yellow (Yellow); Ketones,Urine Negative (Negative); Nitrite,Urine Negative (Negative); PH, Urine 5.5 (5.0-8.0); Specific Gravity,Urine 1.015 (1.001-1.030); Urobilinogen,Urine 0.2 (0.2,1.0)
== END | disposition home or self-care (01) ==
LOC: LABPAT 09:11
PROVIDERS: ATTEND Urology
DX: Z01.812 Encounter for preprocedural laboratory examination (principal); N20.1 Calculus of ureter
CPT/HCPCS: 36415; 80048; 81001; 85025; 87086

== ENCOUNTER 2022-01-11 11:05 | Day surgery (SDC) | payer OTHER ==
[2022-01-08 13:38] VITALS: BMI 33.6
--- NOTE | 2022-01-10 12:24 | P.HPIHPCON ---
History of Present Illness Chief Complaint: right sided ureteral stone This is a 56-year-old male with history of a 9 mm right-sided ureteral stone, underwent stent insertion secondary to septic stone. He presents today for definitive stone management. Option of right-sided ureteroscopy with holmium laser was discussed with him. Discussed with him the risk which includes but not limited to bleeding, infection, injury to the ureter. Discussed also risks of anesthesia. He understood all the risks and agreed to proceed with a right-sided ureteroscopy, holmium laser lithotripsy, stone basketing and stent removal Consent for Procedure: I have explained the operation/procedure to the patient, including the risks, benefits, side effects, alternative therapies (including not receiving the proposed treatment or service), the likelihood of the patient achieving his/her goals, and potential recuperation problems for the procedure/sedation/analgesia, as well as any blood products, if indicated. I also explained to the patient the risks, benefits and side effects of the alternatives, as well as the risks rel ated to not receiving the proposed procedure, care, treatment, or services. Past Medical History Past Medical History: Cancer, Osteoarthritis (OA) Additional Past Medical History / Comment(s): kidney stones, colon CA History of Any Multi-Drug Resistant Organisms: None Reported Past Surgical History: Bowel Resection Additional Past Surgical History / Comment(s): "surgery for kidney stone and stent at [facility]" Past Anesthesia/Blood Transfusion Reactions: No Reported Reaction Smoking Status: Never smoker - Past Family History Mother Family Medical History: No Reported History Medications and Allergies Home Medications Medication Instructions Recorded Confirmed Type Hydrocodone/Acetaminophen [[place] 1 tab PO QID PRN 03/13/17 01/08/22 History 10-325] Antibiotic(Name/Dose Unknown) 1 tab PO DIRECTED 01/08/22 01/08/22 History Allergies Allergy/AdvReac Type Severity Reaction Status Date / Time No Known Allergies Allergy Verified 01/08/22 13:31 Surgical - Exam - General no distress, moderate pain - Eyes normal ocular movement, no pale - Respiratory normal expansion, normal respiratory effort - Abdomen Abdomen: soft, non tender Assessment and Plan Assessment: OR for right-sided ureteroscopy, holmium laser lithotripsy, stone basketing and stent removal
--- NOTE | 2022-01-11 11:24 | XR ---
EXAMINATION TYPE: XR KUB DATE OF EXAM: 01/11/2022 COMPARISON: 01/25/2021 HISTORY: Pain TECHNIQUE: One view abdominal series FINDINGS: The osseous structures are intact. The bowel gas pattern is nonspecific. There is a small 16 mm lowe r pole right renal calculus with double-J ureteral stent is noted in position. No definitive calcific ations overlying the left renal outline on today's exam. Hypertrophic degenerative change of the spin e. IMPRESSION: 1. 16 mm lower pole right renal calculus with a double-J right-sided ureteral stent.
[2022-01-11] MEDS ORDERED: LACTATED RINGERS 1,000 ML IV ONE ×3 (12:41→14:31)
[2022-01-11 13:15] VITALS: TEMP 97.9
[2022-01-11] MEDS ORDERED: MIDAZOLAM 2 MG/2 ML VIAL IVP ONE (13:15)
[2022-01-11] MEDS ORDERED: LIDOCAINE 4% LTA KIT (4 ML) TOPICAL ONE (13:19)
[2022-01-11] MEDS ORDERED: LIDOCAINE 2% INJ 20 MG/ML (2 ML VIAL) ONE (13:19)
[2022-01-11] MEDS ORDERED: fentaNYL (PF) 50 MCG/ML 2 ML AMP ONE (13:19)
[2022-01-11] MEDS ORDERED: PROPOFOL 10 MG/ML 20 ML VIAL IV ONE (13:19)
[2022-01-11] MEDS ORDERED: MIDAZOLAM 2 MG/2 ML VIAL ONE (13:19)
[2022-01-11] MEDS ORDERED: SUCCINYLCHOLINE CHLORIDE 200 MG/10 ML VIAL IV ONE (13:19)
--- NOTE | 2022-01-11 15:20 | P.OP ---
Date of Procedure: 01/11/22 Preoperative Diagnosis: Right ureteral stone Postoperative Diagnosis: Same Procedure(s) Performed: Cystoscopy, right ureteroscopy, holmium laser lithotripsy, stone basketing and stent removal Implants: None Anesthesia: MARY CARMEN Surgeon: Oh Hung Estimated Blood Loss (ml): 10 Pathology: other (right sided ureteral stone) Condition: stable Disposition: PACU Indications for Procedure: This is a 56-year-old male with history of a 16 mm right-sided ureteral stone, underwent stent insertion secondary to septic stone. He presents today for definitive stone management. Option of right-sided ureteroscopy with holmium laser was discussed with him. Discussed with him the risk which includes but not limited to bleeding, infection, injury to the ureter. Discussed also risks of anesthesia. He understood all the risks and agreed to proceed with a right- sided ureteroscopy, holmium laser lithotripsy, stone basketing and stent remov Operative Findings: Previous ureteral stone has migrated into the lower pole Description of Procedure: Patient brought to the operating room, general anesthesia was induced. She was prepped and draped in sterile fashion and placed in dorsal lithotomy position. Cystoscopy fitted 21-Vietnamese sheath was inserted per urethra, cystoscopy was performed showed no abnormality within the bladder, patient had trilobar hyperplasia. Attention was encountered to the right ureteral orifice, the stent was grasped and removed to the meatus. Next a sensor wire was advanced through the stent and the stent was removed with the wire in place. Next under fluoroscopy 1113 Vietnamese access sheath was passed over the wire and into the proximal ureter. Next the flexible ureteroscope was inserted through the access sheath, renoscopy was performed which showed a large stone within the lower pole. The stone was dusted using the holmium laser, sizable fragments were removed using the stone basket. Repeat renoscopy showed no sizable fragments or injury to the kidney, under fluoroscopy there was no radiopaque densities. Of note there was significant dust in the kidney which slightly limited visualization. Pullback ureteroscopy was performed which showed no injury to th e ureter or any ureteral stones. The bladder was emptied at the end of the case. Patient tolerated the procedure well was taken to recovery in stable condition
--- NOTE | 2022-01-11 15:34 | FL ---
Fluoroscopy History: Rt kidney stone 18 sec fl-2 images
[2022-01-11] MEDS ORDERED: KETOROLAC 15 MG/ML 1 ML VIAL IVP ONE (15:55)
[2022-01-11] MEDS ORDERED: HYDROmorphone 0.5 MG/0.5 ML SYRINGE IVP ONE (15:58)
[2022-01-11] MEDS ORDERED: ONDANSETRON 4 MG/2 ML VIAL ONE (16:44)
[2022-01-11] MEDS ORDERED: ONDANSETRON 4 MG/2 ML VIAL IVP ONE (16:45)
[2022-01-11 17:04] VITALS: BP 161/85; PULSE 74; RESP 20
== END 2022-01-11 17:20 | disposition home or self-care (01) ==
LOC: OR 11:05
PROVIDERS: ATTEND Urology
DX: N20.1 Calculus of ureter (principal); M19.90 Unspecified osteoarthritis, unspecified site; I10 Essential (primary) hypertension
CPT/HCPCS: 82365; 74018; 52353; C1769; J2250; J0330; J1100; J0690; J2405; J3010; J1885; J2704; J1170; J2001

== ENCOUNTER → 2022-08-12 | Outpatient (CLI) | payer OTHER ==
[2022-08-12 15:58] LABS: BUN/Creat Ratio 13.89 Ratio; Blood Urea Nitrogen 12.5 mg/dL; Calcium 10.1 mg/dL; Carbon Dioxide 27.5 mmol/L; Chloride 102 mmol/L; Glucose 99 mg/dL; Potassium 5.2 mmol/L; Sodium 140 mmol/L
== END | disposition home or self-care (01) ==
LOC: LABWHC1 11:26
PROVIDERS: ATTEND Urology
DX: N20.0 Calculus of kidney (principal); R97.20 Elevated prostate specific antigen [PSA]
CPT/HCPCS: 36415; 80048

== ENCOUNTER → 2024-09-08 | Outpatient (CLI) | payer OTHER ==
[2024-09-08 15:32] LABS: Anion Gap 14.00 mmol/L (4.00-12.00); BUN/Creat Ratio 19.89 Ratio (12.00-20.00); Blood Urea Nitrogen 17.9 mg/dL (9.0-27.0); Carbon Dioxide 25.0 mmol/L (21.6-31.8); Chloride 100 mmol/L (96-109); Glucose 114 mg/dL (70-110); Potassium 4.6 mmol/L (3.5-5.5); Sodium 139 mmol/L (135-145)
[2024-09-08 15:33] LABS: Calcium 10.0 mg/dL (8.7-10.3); Prostate Specific Antigen 1.23 ng/mL (0.000-4.500)
== END | disposition home or self-care (01) ==
LOC: LABWHC1 10:02
PROVIDERS: ATTEND Urology
DX: N40.1 Benign prostatic hyperplasia with lower urinary tract symptoms (principal); N20.0 Calculus of kidney
CPT/HCPCS: 36415; 80048; 84153